=== PATIENT | female | born 1995 | race Two or more races ===

== ENCOUNTER 2016-08-11 08:16 | Day surgery (SDC) | payer OTHER ==
[2016-08-11 09:06] VITALS: BP 109/59; PULSE 84; RESP 20
[2016-08-11] MEDS ORDERED: ETON1VAG VG (09:48)
[2016-08-11] MEDS ORDERED: LIDOCAINE 4% SOLUTION 50 ML BTL ONE (10:02)
[2016-08-11] MEDS ORDERED: FENTAnyl 50 MCG/ML VIAL ONE (10:34)
[2016-08-11] MEDS ORDERED: MIDAZOLAM 1 MG/ML 2 ML INJ ONE ×2 (10:35)
--- NOTE | 2016-08-11 10:39 | GILP ---
DATE OF PROCEDURE: 08/11/2016 PROCEDURE: Esophagogastroduodenoscopy. PREOPERATIVE DIAGNOSIS: Patient presenting with history of chronic abdominal pain unresponsive to r outine [id number] therapy, rule out peptic ulcer disease, rule out malignancy, esophagitis. POSTOPERATIVE DIAGNOSIS: Mild diffuse gastritis. No ulcers, no esophagitis noted. DESCRIPTION OF PROCEDURE: After the informed written consent was obtained, the patient was asked to lie on the left lateral side, 3 mg Versed and 50 mcg of fentanyl was given as intravenous anesthesi a. When the patient became somnolent, the Olympus video upper endoscope was introduced into the orophar ynx, then into the esophagus. Entire mucosa of the esophagus showed normal picture. No ulcers, no esophagitis noted. Scope at this time was advanced into the stomach. Entire stomach showed diffuse mild erythema in a patchy distribution. Biopsy was done from the antrum, the lesser curvature and the fundus to rule out H. pylori infection. No ulcer, no tumor noted. Duodenum showed normal mucos a up to the end of the third portion. Endoscope at this time was withdrawn and on the way out, no a dditional abnormalities detected and the procedure was terminated. PLAN: Recommend Omeprazole 40 mg a day for 2 months. Meanwhile, wait for the pathology report of t he biopsies that were done from the stomach for H. pylori infection. Dictated By: MIROSLAVA BRUNSON/YUSEF Conf#: [id number] DID#: [id number] CC: ; MIROSLAVA ROMEO MD;*EndCC*
[2016-08-11 11:05] VITALS: BP 112/71; PULSE 66; RESP 20
== END 2016-08-11 11:08 | disposition home or self-care (01) ==
LOC: GIL 08:16
PROVIDERS: ATTEND Internal Medicine Gastroenterology
DX: K29.30 Chronic superficial gastritis without bleeding (principal)
CPT/HCPCS: 43239; 84703; 88305; 88312; J2250; J3010; Z7610